=== PATIENT | male | born 1985 | race Caucasian/White ===

== ENCOUNTER 2017-05-11 06:30 | Inpatient (IN) ==
[2017-05-11] MEDS ORDERED: 0.9 % Sodium Chloride 1,000 ML IVC ONE ×2 (06:39→08:26)
--- NOTE | 2017-05-11 06:45 | Emergency Department Note ---
Disposition Clinical Impression: Dyspnea Qualifiers: Dyspnea type: unspecified Qualified Code(s): R06.00 - Dyspnea, unspecified Disposition: Still a Patient Condition: Undetermined Forms: ED Satisfaction Letter General Adult HPI - General Chief complaint: ED Shortness of Breath/Dyspnea Stated complaint: DARCIE Time Seen by Provider: 05/11/17 06:37 Source: EMS Mode of arrival: EMS Limitations: other (mental handicap) Nursing Notes Reviewed: Yes Vital Signs Reviewed: Yes - History of Present Illness HPI Narrative: 31 y/o male who reports that he had sudden onset of dyspnea starting at 5:45am. He had a knee surgery done 3 days ago at [facility]. He is unsure what type of surgery he had. He does not know his medical history. He denies having any current pain. EMS was called and he was found to by hypoxic and tachycardic. His family is reportedly on their way to the ER Pain Scale: 0 Consistency: constant Improves with: nothing Worsens with: nothing Associated symptoms: Reports: denies other symptoms Treatments Prior to Arrival: none - Related Data Previous Rx's Medication Instructions Recorded HYDROcodone/Acet 5/325 mg [[place] 1 tab PO Q4H PRN #20 tab 01/28/17 5-325 mg] Ondansetron ODT [Zofran ODT] 4 mg SL Q6HR #15 tab.rapdis 01/28/17 Polyethylene Glycol 3350 [MiraLAX] 17 gm PO DAILY #30 powd.pack 01/28/17 Ibuprofen [Motrin] 600 mg PO Q8HR PRN #20 tab 03/27/17 Ondansetron ODT [Zofran ODT] 4 mg SL Q8HR PRN #12 tab.rapdis 03/27/17 OxyCODONE/APAP 5/325 [Percocet 1 each PO Q6HR PRN #15 tablet 03/27/17 5/325 MG] Allergies Allergy/AdvReac Type Severity Reaction Status Date / Time aspirin AdvReac Vomiting Verified 03/27/17 15:22 codeine AdvReac Vomiting Verified 03/27/17 15:22 Sulfa (Sulfonamide AdvReac Vomiting Verified 03/27/17 15:22 Antibiotics) All systems ED: reviewed and negative except as stated. Constitutional: Denies: fever Cardiovascular: Denies: chest pain Respiratory: Reports: dyspnea. Denies: cough Gastrointestinal: Denies: abdominal pain Integumentary: Denies: rash Past Medical History - Past Medical History Medical history: Reports: diabetes, hypertension Surgical history: Reports: non-contributory Psychiatric history: Reports: anxiety, depression, schizophrenia - Social History Smoking Status: Never smoker Smokeless Tobacco Status: No Alcohol use: Reports: none Drug use: Reports: none Physical Exam - General Limitations: physical limitation General appearance: alert, other (visibly dyspneic) - Head Head exam: atraumatic - Eye Eye exam: Present: normal appearance, PERRL - ENT ENT exam: normal exam - Neck Neck exam: Present: normal inspection - Chest Chest inspection: Present: normal inspection - Respiratory Respiratory exam: Present: other (diminished breath sounds) - Cardiovascular Cardiovascular exam: Present: normal rhythm, tachycardia - Abdominal Exam Abdominal exam: Present: soft, Non-Tender - Extremities Exam Extremities exam: Present: other (right knee is in an immobilizer. Pulses present distally and cap refill is brisk distally.) - Neurological Exam Neurological exam: Present: alert - Skin Skin exam: Present: warm, dry Course Course Narrative: I initially saw the patient and will turn him over to the day team for following up on his labwork and CTA of the chest. High suspicion for pulmonary embolism. Not hypotensive and is maintaining his SPO2 >92% while on 2liter O2 NC. Medical Decision Making - Lab Data Result diagrams: 05/11/17 06:40 - EKG Data EKG #1 EKG attestation: Yes I reviewed and interpreted this EKG. EKG shows normal: sinus rhythm Rate: tachycardia Rhythm: NSR Interpretation: other (Sinus tachycardia.) Attestation Statement - Attestation Attestation: I, Aguustus Kelly MD, personally evaluated this patient and discussed their management with the resident physician. I reviewed the resident's note and agree with the documented findings, medical decision making, and plan of care. 31-year-old male who is 3 days status post right knee surgery presents to the emergency department complaining of awakening this morning shortly prior to arrival with shortness of breath. EMS reports oxygen saturation in the 80s on their arrival. No history of breathing problems or oxygen requirement. On arrival here patient is on oxygen by nasal cannula with an oxygen saturation of 93%. Heart rate 138. On examination patient is a well-developed obese male in mild distress. He is alert. He appears slightly pale. No cyanosis or diaphoresis. Breath sounds are clear and equal bilaterally. Heart tachycardic and regular. Lab work initiated. CTA of the chest was ordered to rule out pulmonary embolism. At shift change patient is signed out to the oncoming dayshift team 15, Dr. Maxwell and Dr. Ramu Dong.
[2017-05-11 06:48] LABS: Basophils % 0.3 %; Hematocrit 42.3 % (37.5-50.1); Hemoglobin 13.7 g/dL (12.9-16.9); Immature Granulocytes % 0.5 % (0-4); Lymphocytes % 7.5 %; Mean Corpuscular HGB Conc 32.4 g/dL (31.6-35.5); Mean Corpuscular Hemoglobin 28.1 pg (28.0-33.3); Mean Corpuscular Volume 86.9 fL (83.0-100.0); Mean Platelet Volume 9.4 fL (9.4-12.4); Monocytes # 0.3 K/mcL (0.0-1.3); Monocytes % 2.6 %; Neutrophils # 11.9 K/mcL (1.6-8.9); Platelet Count 237 K/mcL (140-400); Red Blood Count 4.87 M/mcL (4.19-5.50); Red Cell Distribution Width 12.8 % (11.5-14.5); Segmented Neutrophils % 89.1 %
[2017-05-11 07:09] LABS: BUN/Creatinine Ratio 15 (6-26); Blood Urea Nitrogen 15 mg/dL (6-20); Carbon Dioxide 29 mEq/L (23-29); Chloride 102 mEq/L (98-107); Glucose 160 mg/dL (70-105); Osmolality,Calculated 290 (280-300); Potassium 4.1 mEq/L (3.5-5.1); Sodium 138 mEq/L (136-145); eGFR For African Americans > 60 (> 60); eGFR For Non-African Americans > 60 (> 60)
[2017-05-11 07:11] LABS: INR 1.1
[2017-05-11 07:27] LABS: Activated Partial Thrombo Time 28.1 Seconds (26.0-36.0)
[2017-05-11] MEDS ORDERED: Piperacillin/Tazobactam 3.375 GM in 0.9 % Sodium Chloride Mini Bag 100 ML IVPB ONE (07:31)
--- NOTE | 2017-05-11 07:35 | Emergency Department Note ---
Disposition Clinical Impression: Multifocal pneumonia, Hypoxia Dyspnea Qualifiers: Dyspnea type: unspecified Qualified Code(s): R06.00 - Dyspnea, unspecified Disposition: Admitted As Inpatient Condition: Fair Time of Disposition: 07:34 SOB HPI - General Chief Complaint: ED Shortness of Breath/Dyspnea Stated Complaint: DARCIE Time Seen by Provider: 05/11/17 06:37 Source: EMS Mode of arrival: EMS Limitations: physical limitation Nursing Notes Reviewed: Yes Vital Signs Reviewed: Yes - Related Data Allergies Allergy/AdvReac Type Severity Reaction Status Date / Time aspirin AdvReac Vomiting Verified 03/27/17 15:22 codeine AdvReac Vomiting Verified 03/27/17 15:22 Sulfa (Sulfonamide AdvReac Vomiting Verified 03/27/17 15:22 Antibiotics) Constitutional: Denies: fever Cardiovascular: Denies: chest pain Respiratory: Reports: dyspnea. Denies: cough Gastrointestinal: Denies: abdominal pain Integumentary: Denies: rash Past Medical History - Past Medical History Medical history: Reports: diabetes, hypertension Surgical history: Reports: non-contributory Psychiatric history: Reports: anxiety, depression, schizophrenia - Social History Smoking Status: Never smoker Smokeless Tobacco Status: No Alcohol use: Reports: none Drug use: Reports: none Physical Exam - General Limitations: physical limitation General appearance: alert, other (visibly dyspneic) Course Course Narrative: Care was signed out from Dr. Kelly and Dr. Goldsmith, briefly patient with Levon E status post right knee surgery a few days ago, presents with hypoxia shortness of breath, CTA of his chest shows evidence of no pulmonary embolism bilateral multifocal pneumonia, she does endorse a history of aspiration, started empirically on bank and Zosyn, plan is for admission to hospital - Reevaluation(s) Reevaluation #1: Patient admitted to Dr. Maldonado for multifocal pneumonia, possible aspiration pneumonia, hypoxia, sepsis. Blood cultures lactate drawn, no evidence of severe sepsis with blood pressure 144/90, patient given fluids antibiotics with vancomycin and Zosyn for concern for aspiration risk. Vital Signs Temperature 99.7 F H 05/11/17 06:34 Pulse Rate 139 05/11/17 06:34 Respiratory Rate 26 05/11/17 06:34 Blood Pressure 144/91 05/11/17 06:34 O2 Sat by Pulse Oximetry 92 05/11/17 06:34 Temperature 99.4 F 05/11/17 08:18 Pulse Rate 132 05/11/17 08:18 Respiratory Rate 18 05/11/17 08:18 Blood Pressure 142/93 05/11/17 08:18 O2 Sat by Pulse Oximetry 92 05/11/17 08:18 Oxygen Delivery Oxygen Delivery Nasal Cannula Shortness of Breath/Dyspnea - Differential Diagnosis Likely: congestive heart failure, pneumonia, asthma with exacerbation, pulmonary embolism - Medical Records Medical records reviewed: Yes I reviewed the patient's medical records. - Lab Data Lab results reviewed: Yes I reviewed the patient's lab results. Result diagrams: 05/11/17 06:40 05/11/17 06:40 Lab Results 05/11/17 05/11/17 05/11/17 Range/Units 06:40 06:40 06:40 WBC 13.3 H (4.3-11.1) K/mcL RBC 4.87 (4.19-5.50) M/mcL Hgb 13.7 (12.9-16.9) g/dL Hct 42.3 (37.5-50.1) % MCV 86.9 (83.0-100.0) fL MCH 28.1 (28.0-33.3) pg MCHC 32.4 (31.6-35.5) g/dL RDW 12.8 (11.5-14.5) % Plt Count 237 (140-400) K/mcL MPV 9.4 (9.4-12.4) fL Immature Gran % 0.5 (0-4) % Seg Neutrophils % 89.1 % Lymphocytes % 7.5 % Monocytes % 2.6 % Eosinophils % 0.0 % Basophils % 0.3 % Neutrophils # 11.9 H (1.6-8.9) K/mcL Lymphocytes # 1.0 (0.6-4.6) K/mcL Monocytes # 0.3 (0.0-1.3) K/mcL Eosinophils # 0.0 (0.0-0.6) K/mcL Basophils # 0.0 (0.0-0.2) K/mcL PT (9.4-12.1) Seconds INR APTT (26.0-36.0) Seconds Sodium 138 (136-145) mEq/L Potassium 4.1 (3.5-5.1) mEq/L Chloride 102 (98-107) mEq/L Carbon Dioxide 29 (23-29) mEq/L BUN 15 (6-20) mg/dL Creatinine 1.02 (0.70-1.30) mg/dL Est GFR ( Amer) > 60 (> 60) Est GFR (Non-Af Amer) > 60 (> 60) BUN/Creatinine Ratio 15 (6-26) Glucose 160 H (70-105) mg/dL Calculated Osmolality 290 (280-300) Lactic Acid 1.3 (0.5-2.2) mmol/L Calcium 10.0 (8.6-10.3) mg/dL Troponin I (< 0.04) ng/mL B-Natriuretic Peptide (Less than 100) pg/mL 05/11/17 05/11/17 05/11/17 Range/Units 06:40 06:40 06:40 WBC (4.3-11.1) K/mcL RBC (4.19-5.50) M/mcL Hgb (12.9-16.9) g/dL Hct (37.5-50.1) % MCV (83.0-100.0) fL MCH (28.0-33.3) pg MCHC (31.6-35.5) g/dL RDW (11.5-14.5) % Plt Count (140-400) K/mcL MPV (9.4-12.4) fL Immature Gran % (0-4) % Seg Neutrophils % % Lymphocytes % % Monocytes % % Eosinophils % % Basophils % % Neutrophils # (1.6-8.9) K/mcL Lymphocytes # (0.6-4.6) K/mcL Monocytes # (0.0-1.3) K/mcL Eosinophils # (0.0-0.6) K/mcL Basophils # (0.0-0.2) K/mcL PT 12.0 (9.4-12.1) Seconds INR 1.1 APTT 28.1 (26.0-36.0) Seconds Sodium (136-145) mEq/L Potassium (3.5-5.1) mEq/L Chloride (98-107) mEq/L Carbon Dioxide (23-29) mEq/L BUN (6-20) mg/dL Creatinine (0.70-1.30) mg/dL Est GFR ( Amer) (> 60) Est GFR (Non-Af Amer) (> 60) BUN/Creatinine Ratio (6-26) Glucose (70-105) mg/dL Calculated Osmolality (280-300) Lactic Acid (0.5-2.2) mmol/L Calcium (8.6-10.3) mg/dL Troponin I < 0.03 (< 0.04) ng/mL B-Natriuretic Peptide 14 (Less than 100) pg/mL - Radiology Data Radiology results reviewed: Yes I reviewed the patient's radiology results. Chest CTA 05/11/17 06:39 IMPRESSION: Findings are most compatible with multifocal pneumonia. No pulmonary embolus within limitations of this exam due to respiratory motion. D/ / 05/11/2017 07:38:59 Nathalia Gregorio MD / malu Interpreting Provider: Nathalia Gregorio MD Attestation Statement - Attestation Attestation: I, Ramu Dong, examined this patient and my medical decision-making was reviewed with the TIMBER SIZER OPERATOR/PA/Advanced Practice Nurse/Resident Physician. I agree with the documented findings, disposition and treatment plan as described except to the extent set forth below. 31-year-old male presents emergency Department with difficulty in breathing. Patient had recent right lower extremity surgery by Dr. Bates at [facility]. This morning he woke with tachypnea, tachycardia and was found to be hypoxic by EMS. Patient has a history of developmental delay and is a difficult historian. Patient was received in sign out and started her shift pending laboratory evaluation and imaging. CT of the chest did not show evidence of PE however there is evidence of multifocal pneumonia. Patient has mildly elevated temperature and a leukocytosis. He will be started on antibiotics to cover for aspiration pneumonia. He will be admitted to the hospital for further care and evaluation.
[2017-05-11] MEDS ORDERED: Ibuprofen 800 MG TABLET PO ONE ×2 (08:26→20:29)
[2017-05-11] MEDS ORDERED: Acetaminophen 325 MG TABLET PO PRN (09:06)
[2017-05-11] MEDS ORDERED: Naloxone 0.4 MG/ML INJ IVP PRN (09:06)
--- NOTE | 2017-05-11 09:16 | Internal Med History&Physical ---
<HumphreyusDenis - Last Filed: 05/11/17 11:15> Date of Encounter: 05/11/17 Time of Encounter: 09:15 Assessment and Plan (1) Sepsis Current visit: Yes Status: Acute Patient arrived with symptoms of shortness of breath HR was 130s, temp: 101.2, WBC 13.3 source of infection likely secondary to HCAP patient recently had surgery 3 days ago on his right knee at [facility] chest CTA showed multifocal pneumonia without evidence of PE received 2L fluid bolus, one dose of vancomycin and zosyn in ED lactic acid: 1.3 Plan: UA maintenance fluids blood cultures x2 sputum culture supplemental oxygen vancomycin, zosyn, levaquin day 1 PRN DuoNebs continuous pulse ox consult ortho later if needed Qualifiers: Sepsis type: sepsis due to unspecified organism Qualified Code(s): A41.9 - Sepsis, unspecified organism (2) HCAP (healthcare-associated pneumonia) Current visit: Yes Status: Acute as above (3) Chest pain Current visit: Yes Status: Acute reports substernal chest pain EKG consistent with sinus tachycardia without ischemic changes noted. first troponin negative Plan: repeat troponin x2 Qualifiers: Ischemic chest pain type: angina pectoris with documented coronary spasm (4) DVT prophylaxis Current visit: Yes Status: Acute lovenox Internal Medicine - H&P: HPI Chief complaint: dyspnea Admitted From: Home History of present illness: Mr. Landon is a 31 year old male with PMHx of intellectual disorder, HTN, recent knee surgery 3 days ago at [facility] by Dr. Bates. Patient is a poor historian and history was obtained in the emergency department without his family present. Patient arrived to the emergency department with chief complaint of sudden onset dyspnea that started earlier in the morning. He also reports productive white sputum with associated fevers and chills. Additionally , he reports substernal chest pain that radiates to his back, and reports soreness in his right lower extremity where his prior surgery was done. patient denies hematuria, melena, hematochezia. He does report palpitations. In the ED, patient was found to be septic and was given a dose of vancomycin, zosyn, and he was given 2L fluid bolus. Past Med Surg Social Fam HX - Past Medical History Medical history: diabetes, hypertension Psychiatric history: anxiety, depression, schizophrenia - Past Surgical History Surgical History: non-contributory - Social History Smoking Status: Never smoker Smokeless Tobacco Status: No Alcohol use: none Drug use: none Internal Medicine - H&P: Meds Citalopram Hydrobromide [Celexa] 20 mg PO DAILY 05/11/17 [History] HydrOXYzine Pamoate [Vistaril] 50 mg PO TID 05/11/17 [History] LORazepam [Ativan] 1 mg PO QID 05/11/17 [History] [place] Carbonate ER [Eskalith] 450 mg PO HS 05/11/17 [History] Melatonin [Melatin] 6 mg PO HS 05/11/17 [History] Propranolol HCl [Innopran Xl] 120 mg PO HS 05/11/17 [History] cloZAPine [Clozaril] 75 mg PO HS 05/11/17 [History] cloZAPine [Clozaril] 300 mg PO HS 05/11/17 [History] 3 Allergy/AdvReac Type Severity Reaction Status Date / Time aspirin AdvReac Vomiting Verified 03/27/17 15:22 codeine AdvReac Vomiting Verified 03/27/17 15:22 Sulfa (Sulfonamide AdvReac Vomiting Verified 03/27/17 15:22 Antibiotics) All Systems PM: A 10-system review of systems was performed and is negative for pertinent findings except as documented above in the HPI. - Constitutional Constitutional: as per HPI - Constitutional Vitals: Temp Pulse Resp BP Pulse Ox 101.2 F H 132 18 142/93 92 05/11/17 08:26 05/11/17 08:18 05/11/17 08:18 05/11/17 08:18 05/11/17 08:18 General appearance: Present: A&O X 3, no acute distress. Absent: answers questions appropriately Exam: no acute distress, appears pale and diaphoretic - Head Head exam: Present: atraumatic, normocephalic - Neck Neck exam general surgery: Present: supple, trachea midline - Respiratory Respiratory exam: Present: rales, rhonchi - Cardiovascular Cardiovascular exam: Present: tachycardia - GI/Abdominal GI/Abdominal exam: Present: distended, normal bowel sounds, soft. Absent: tenderness - Extremities Exam Additional comments: right lower extremity placed in cast. no cyanosis or edema present in the extremities. - Neurological Exam Neurological exam: Present: alert, oriented X3, no focal deficits - Psychiatric Psychiatric exam: Present: normal affect, normal mood - Skin Skin exam: Present: intact Internal Med - H&P Results - Labs CBC & Chem 7: 05/11/17 06:40 05/11/17 06:40 <Goyo Maldonado - Last Filed: 05/11/17 18:54> Date of Encounter: 05/11/17 Internal Medicine - H&P: HPI History of present illness: Mr. Landon is a 31 year old male All Systems PM: A 10-system review of systems was performed and is negative for pertinent findings except as documented above in the HPI. - Constitutional Vitals: Temp Pulse Resp BP Pulse Ox 99.7 F H 105 16 115/79 95 05/11/17 16:04 05/11/17 16:04 05/11/17 16:04 05/11/17 16:04 05/11/17 16:04 Internal Med - H&P Results - Labs CBC & Chem 7: 05/11/17 06:40 05/11/17 06:40 Labs: Cardiac Enzymes 05/11/17 Range/Units 12:53 Troponin I < 0.03 (< 0.04) ng/mL Urine 05/11/17 Range/Units 12:40 Urine Color Yellow (Yellow) Urine Clarity Clear (Clear) Urine pH 6.0 (5.0-8.0) pH Units Ur Specific [place] 1.016 (1.010-1.025) Urine Protein Negative (Neg-Trace) mg/dL Urine Glucose (UA) Normal (Normal) mg/dL - Attending Attestation I had a [id number] diagnostic evaluation of this patient and my medical decision-making was reviewed with the Resident Physician Dr Lares. I agree with the documented findings, disposition and treatment plan as described except to the extent set forth below. For sepsis secondary to pneumonia we will treat him with broad-spectrum IV antibiotics, follow cultures and temperature curve. For hypertension will continue oral antihypertensive medication per home regimen. For diabetes will treat him with insulin sliding scale. Goyo Maldonado MD
[2017-05-11] MEDS ORDERED: Ipratropium/Albuterol Neb 3 ML IH PRN (09:33)
[2017-05-11] MEDS: 0.9 % Sodium Chloride 1,000 ML IVC SCH (10:41)
[2017-05-11] MEDS: Levofloxacin 750 MG/150 ML 750 MG/150 ML BAG IVPB SCH (10:41)
[2017-05-11 13:07] LABS: Bilirubin,Urine Negative (Negative); Blood,Urine Negative (Negative); Clarity,Urine Clear (Clear); Color,Urine Yellow (Yellow); Glucose,Urine (UA) Normal (Normal); Ketones,Urine Negative (Negative); Leukocyte Esterase,Urine Negative (Negative); Nitrite,Urine Negative (Negative); Protein,Urine Negative (Neg-Trace); Specific Gravity,Urine 1.016 (1.010-1.025); Urobilinogen,Urine Normal (Normal)
[2017-05-11] MEDS: Ondansetron 4 MG/2 ML VIAL IVP SCH ×2 (16:18→23:16)
[2017-05-11] MEDS ORDERED: hydrOXYzine pamoate 25 MG CAPSULE PO PRN (19:38)
[2017-05-11] MEDS ORDERED: *HR* LORazepam 1 MG TABLET PO PRN (19:38)
[2017-05-11] MEDS: Lithium Carbonate ER 450 MG TABLET.ER PO SCH (20:32)
[2017-05-11] MEDS: cloZAPine 25 MG TABLET PO SCH (20:32)
[2017-05-11] MEDS: Propranolol LA (24 HR) 60 MG CAP.SA.24H PO SCH (20:32)
[2017-05-11] MEDS: Melatonin 3 MG TABLET PO SCH (20:32)
[2017-05-11] MEDS: cloZAPine 100 MG TABLET PO SCH (21:58)
[2017-05-12] MEDS: 0.9 % Sodium Chloride 1,000 ML IVC SCH (02:52)
[2017-05-12 04:40] LABS: Basophils % 0.2 %; Hematocrit 32.4 % (37.5-50.1); Immature Granulocytes % 0.6 % (0-4); Lymphocytes # 1.9 K/mcL (0.6-4.6); Lymphocytes % 21.2 %; Mean Corpuscular HGB Conc 32.7 g/dL (31.6-35.5); Mean Corpuscular Hemoglobin 28.3 pg (28.0-33.3); Mean Corpuscular Volume 86.6 fL (83.0-100.0); Mean Platelet Volume 9.5 fL (9.4-12.4); Monocytes # 0.7 K/mcL (0.0-1.3); Monocytes % 7.3 %; Neutrophils # 6.3 K/mcL (1.6-8.9); Platelet Count 223 K/mcL (140-400); Red Blood Count 3.74 M/mcL (4.19-5.50); Segmented Neutrophils % 70.7 %
[2017-05-12 04:42] LABS: Hemoglobin 10.6 g/dL (12.9-16.9)
[2017-05-12 05:02] LABS: BUN/Creatinine Ratio 13 (6-26); Blood Urea Nitrogen 11 mg/dL (6-20); Carbon Dioxide 29 mEq/L (23-29); Chloride 108 mEq/L (98-107); Glucose 118 mg/dL (70-105); Osmolality,Calculated 290 (280-300); Sodium 140 mEq/L (136-145); eGFR For African Americans > 60 (> 60); eGFR For Non-African Americans > 60 (> 60)
[2017-05-12] MEDS: Ondansetron 4 MG/2 ML VIAL IVP SCH ×3 (05:56→18:02)
[2017-05-12] MEDS: *HR* Enoxaparin 40 MG/0.4 ML SYRINGE SQ SCH (05:56)
[2017-05-12] MEDS: Lithium Carbonate ER 450 MG TABLET.ER PO SCH ×2 (09:15→19:37)
[2017-05-12] MEDS: Levofloxacin 750 MG/150 ML 750 MG/150 ML BAG IVPB SCH (09:16)
[2017-05-12] MEDS ORDERED: MOM Conc 10 ML UD.LIQ PO ONE (11:38)
--- NOTE | 2017-05-12 15:21 | Internal Med Progress Note ---
<Epifanio Kerns - Last Filed: 05/12/17 15:12> Date of Encounter: 05/12/17 Time of Encounter: 10:40 - Assessment and plan (1) Sepsis Current Visit: Yes Status: Acute Assessment and plan: Sepsis most likely secondary to HCAP. On admission, patient was tachycardic at 130s, febrile at 101.2, elevated white blood count at 13.3, and source of infection is likely multifocal pneumonia. Patient is post op 4 days s/p right knee surgery at [facility]. Chest CTA showed multifocal pneumonia without any evidence of pulmonary embolism. Lactic acid on admission is 1.3. Preliminary report reads blood cultures negative 2. UA is negative for infections. Sputum culture is still pending. Troponins negative. 1. Continue maintenance fluids. 2. Continue supplemental oxygen as needed. 3. We will discontinue vancomycin after today's dose. 4. Continue day 2 of Levaquin and Zosyn. 5. Consider consult to orthopedic later if needed. Qualifiers: Sepsis type: sepsis due to unspecified organism Qualified Code(s): A41.9 - Sepsis, unspecified organism (2) Multifocal pneumonia Current Visit: Yes Status: Acute Assessment and plan: CTA of the chest shows multifocal pneumonia. No evidence of pulmonary embolism. 1. Tinea IV antibiotics. 2. DuoNeb prn. 3. Continuous pulse oximetry. 4. Supplement oxygen as needed. (3) Chest pain Current Visit: Yes Status: Acute Assessment and plan: Patient denies any chest pain at this time. Initial troponins is negative. Qualifiers: Ischemic chest pain type: angina pectoris with documented coronary spasm Qualified Code(s): I20.1 - Angina pectoris with documented spasm (4) DVT prophylaxis Current Visit: Yes Status: Acute Assessment and plan: SQ Lovenox at this time. (5) Abdominal pain, acute, left lower quadrant Current Visit: Yes Status: Acute Assessment and plan: Patient is afebrile and appears in no acute distress. Left lower quadrant abdominal pain most likely secondary to constipation. Patient's last bowel movement was approximately 4 days ago. Left lower quadrant abdominal tenderness to palpation. Will give patient milk of magnesia - Time Spent With Patient Greater than 35 minutes - Subjective Interval history: The patient was seen and evaluated at bedside. Patient is alert, awake, interactive, afebrile, and appears in no acute distress. Patient is status post 4 days right knee surgery at [facility]. The patient is very pleasant and states that he feels "really good and ready to go home". He was speaking with his mother on his cellular device and placed her on speaker during my exam. Patient states he stays at a intermediate where his mother works at. Patient stated he had a right knee surgery completed this past Thursday due to a broken knee from "a very bad fall that bended my whole right leg backward." Today the patient denies any shortness of breath, productive coughing, fevers, chills , or any chest pain. Patient admits left lower quadrant abdominal pain. He admits he has not had a bowel movement for the past 4 days. Patient denies any pain in his lower extremities and any numbness or tingling. He denies any weaknesses. The patient has no other concerns at this time. - Constitutional Vitals: Temp Pulse Resp BP Pulse Ox 97.9 F 71 16 119/63 96 05/12/17 11:37 05/12/17 11:37 05/12/17 11:37 05/12/17 11:37 05/12/17 11:37 General appearance: Present: cooperative, A&O X 3, pleasant, no acute distress. Absent: answers questions appropriately - Head Head exam: Present: atraumatic, normocephalic - Eye Eye exam: Present: EOMI, normal appearance, PERRL, conjuntiva pink, sclera anicteric - ENT ENT exam: Present: mucous membranes moist - Neck Neck exam general surgery: Present: supple, trachea midline. Absent: lymphadenopathy, tenderness - Respiratory Respiratory exam: Present: CTAB. Absent: accessory muscle use, rales, respiratory distress, rhonchi, wheezes - Cardiovascular Cardiovascular exam: Present: RRR, +S1, +S2. Absent: diastolic murmur, gallop, rubs, systolic murmur - GI/Abdominal GI/Abdominal exam: Present: normal bowel sounds, soft, tenderness (Tenderness to palpation in the left lower quadrant.), no peritoneal signs. Absent: distended - Extremities Exam Extremities exam: Present: warm, radial pulses palpable and symmetrical. Absent : calf tenderness, cyanotic, pedal edema Additional comments: Right lower extremity is placed in a cast. No cyanosis or edema present in the lower extremities bilaterally. Distal pulses intact +2/4 bilaterally. - Neurological Exam Neurological exam: Present: alert, CN II-XII intact, oriented X3, no focal deficits. Absent: pronater drift, facial droop, speech deficit - Skin Skin exam: Present: dry, intact Internal Medicine: Result - Labs CBC & Chem 7: 05/12/17 04:14 05/12/17 04:14 Labs: Short CBC 05/12/17 Range/Units 04:14 WBC 8.9 (4.3-11.1) K/mcL Hgb 10.6 L D (12.9-16.9) g/dL Hct 32.4 L (37.5-50.1) % Plt Count 223 (140-400) K/mcL Neutrophils # 6.3 (1.6-8.9) K/mcL BMP 05/12/17 04:14 Sodium 140 Potassium 4.0 Chloride 108 H Carbon Dioxide 29 BUN 11 Creatinine 0.85 Glucose 118 H Calcium 9.0 - ABG Interpretation ABG results: PT/INR, D-dimer PT 12.0 Seconds (9.4-12.1) 05/11/17 06:40 Consult Discharge Plan - Plan Referrals: NONE,PCP [Primary Care Provider] - <Markell Ahuja - Last Filed: 05/12/17 18:21> Date of Encounter: 05/12/17 - Assessment and plan (1) Pneumonia Current Visit: Yes Status: Suspected Assessment and plan: Pt recent surgery. Qualifiers: Pneumonia type: due to other aerobic Gram-negative bacteria Laterality: bilateral Lung location: lower lobe of lung Qualified Code(s): J15.6 - Pneumonia due to other Gram-negative bacteria (2) Sepsis Current Visit: Yes Status: Resolved Qualifiers: Sepsis type: sepsis due to unspecified organism Qualified Code(s): A41.9 - Sepsis, unspecified organism (3) Chest pain Current Visit: Yes Status: Acute Qualifiers: Chest pain type: precordial pain Qualified Code(s): R07.2 - Precordial pain (4) Abdominal pain, acute, left lower quadrant Current Visit: Yes Status: Acute (5) Constipation Current Visit: Yes Status: Acute Qualifiers: Constipation type: slow transit constipation Qualified Code(s): K59.01 - Slow transit constipation - Constitutional Vitals: Temp Pulse Resp BP Pulse Ox 97.6 F 85 17 115/78 95 05/12/17 15:47 05/12/17 15:47 05/12/17 15:47 05/12/17 15:47 05/12/17 15:47 Internal Medicine: Result - Labs CBC & Chem 7: 05/12/17 04:14 05/12/17 04:14 Labs: Short CBC 05/12/17 Range/Units 04:14 WBC 8.9 (4.3-11.1) K/mcL Hgb 10.6 L D (12.9-16.9) g/dL Hct 32.4 L (37.5-50.1) % Plt Count 223 (140-400) K/mcL Neutrophils # 6.3 (1.6-8.9) K/mcL BMP 05/12/17 04:14 Sodium 140 Potassium 4.0 Chloride 108 H Carbon Dioxide 29 BUN 11 Creatinine 0.85 Glucose 118 H Calcium 9.0 - ABG Interpretation ABG results: PT/INR, D-dimer PT 12.0 Seconds (9.4-12.1) 05/11/17 06:40 - Attending Attestation I examined this patient and my medical decision-making was reviewed with the Resident Physician on 05/12/17. I agree with the documented findings, disposition and treatment plan as described except to the extent set forth below. Mr Landon is currently admitted for multifocal pneumonia. He remains moderate to high risk due to potential for worsening clinical status. Mr Landon is starting to feel better today. No fever last night. Less dyspnea and cough. No GI issues. Exam Alert. Comfortable Mucus membranes dry Heart reg No wheeze. Lungs clear Abd soft I/P 1. Pneumonia - bilateral 2. Sepsis resolved Further diagnoses and plan as above.
[2017-05-12] MEDS: Melatonin 3 MG TABLET PO SCH (19:37)
[2017-05-12] MEDS: Propranolol LA (24 HR) 60 MG CAP.SA.24H PO SCH (19:37)
[2017-05-12] MEDS: cloZAPine 25 MG TABLET PO SCH (19:37)
[2017-05-12] MEDS: cloZAPine 100 MG TABLET PO SCH (19:38)
[2017-05-12] MEDS ORDERED: Ibuprofen 600 MG TABLET PO PRN (20:14)
[2017-05-13] MEDS: Ondansetron 4 MG/2 ML VIAL IVP SCH ×3 (00:33→11:32)
[2017-05-13 02:14] LABS: Basophils % 0.2 %; Hematocrit 32.3 % (37.5-50.1); Hemoglobin 10.6 g/dL (12.9-16.9); Immature Granulocytes % 0.6 % (0-4); Lymphocytes # 1.9 K/mcL (0.6-4.6); Mean Corpuscular HGB Conc 32.8 g/dL (31.6-35.5); Mean Corpuscular Hemoglobin 28.2 pg (28.0-33.3); Mean Corpuscular Volume 85.9 fL (83.0-100.0); Monocytes # 0.7 K/mcL (0.0-1.3); Monocytes % 7.8 %; Platelet Count 241 K/mcL (140-400); Red Blood Count 3.76 M/mcL (4.19-5.50); Segmented Neutrophils % 69.4 %
[2017-05-13 02:33] LABS: BUN/Creatinine Ratio 11 (6-26); Blood Urea Nitrogen 10 mg/dL (6-20); Calcium 9.3 mg/dL (8.6-10.3); Carbon Dioxide 30 mEq/L (23-29); Chloride 107 mEq/L (98-107); Glucose 114 mg/dL (70-105); Osmolality,Calculated 294 (280-300); Potassium 3.7 mEq/L (3.5-5.1); Sodium 142 mEq/L (136-145); eGFR For African Americans > 60 (> 60); eGFR For Non-African Americans > 60 (> 60)
[2017-05-13] MEDS: *HR* Enoxaparin 40 MG/0.4 ML SYRINGE SQ SCH (06:12)
[2017-05-13] MEDS: Lithium Carbonate ER 450 MG TABLET.ER PO SCH (08:41)
--- NOTE | 2017-05-13 09:27 | Discharge Summary ---
<Epifanio Kerns - Last Filed: 05/13/17 09:51> Date of Encounter: 05/13/17 Time of Encounter: 08:45 - Discharge Diagnosis (1) Sepsis Priority: Primary Status: Resolved Qualifiers: Sepsis type: sepsis due to unspecified organism Qualified Code(s): A41.9 - Sepsis, unspecified organism (2) Multifocal pneumonia Priority: Primary Status: Acute (3) Chest pain Priority: Secondary Status: Acute Comments: Resolved. Qualifiers: Chest pain type: precordial pain Qualified Code(s): R07.2 - Precordial pain (4) DVT prophylaxis Priority: Secondary Status: Acute (5) Abdominal pain, acute, left lower quadrant Priority: Secondary Status: Acute Comments: Look quadrant abdominal pain was likely secondary to constipation. Resolved the patient had multiple bowel movements. Hospital course: Mr. Landon is a 31 year old male with a past medical history of hypertension and intellectual disability admitted on 05/11/17 for sepsis secondary to multifocal pneumonia. Patient is post-op day 5 s/p right knee surgery. Patient reported to the emergency department complaining of sudden onset of shortness of breath, productive cough, fever, chills, and chest pain that radiated to the back. Patient was febrile and tachycardic. Labs showed elevated white blood count at 13.3. Troponin is negative. Lactic acid is 1.3. CTA of the chest was negative for PE but positive for multifocal pneumonia. UA was negative for infection. Blood cultures are negative x2. EKG showed no acute ischemic changes. Patient received fluid and one dose of vancomycin and Zosyn in the emergency department. Patient is clinically improving and denies any shortness of breath, chest pain, difficulty breath, fevers,chills, and any weaknesses. Patient is afebrile and white blood count is trending down. Patient is recommended to follow up with his PCP within one week. Patient will be discharged with antibiotics. Patient gave verbal understanding. Patient has no other concerns at this time. - Time Spent with Patient Total time spent providing and/or coordinating discharge services: Greater than 30 minutes - Discharge Medications Prescriptions: levoFLOXacin [Levaquin] 750 mg PO DAILY 4 Days #4 tablet Home Medications: Citalopram Hydrobromide [Celexa] 20 mg PO DAILY 05/11/17 [History] HydrOXYzine Pamoate [Vistaril] 50 mg PO TID PRN 05/11/17 [History] LORazepam [Ativan] 1 mg PO QID PRN 05/11/17 [History] [place] Carbonate ER [Eskalith] 450 mg PO BID 05/11/17 [History] Melatonin [Melatin] 6 mg PO HS 05/11/17 [History] Propranolol HCl [Innopran Xl] 120 mg PO HS 05/11/17 [History] cloZAPine [Clozaril] 75 mg PO HS 05/11/17 [History] cloZAPine [Clozaril] 300 mg PO HS 05/11/17 [History] levoFLOXacin [Levaquin] 750 mg PO DAILY 4 Days #4 tablet 05/13/17 [Rx] Allergies/Adverse Reactions: 3 Allergy/AdvReac Type Severity Reaction Status Date / Time aspirin AdvReac Vomiting Verified 03/27/17 15:22 codeine AdvReac Vomiting Verified 03/27/17 15:22 Sulfa (Sulfonamide AdvReac Vomiting Verified 03/27/17 15:22 Antibiotics) Date of admission: 05/11/17 18:55 Primary care physician: PCP NONE Consults: 05/11/17 21:09 Consult to Nutrition [CONS] Routine Comment: Consulting Provider: NUTRITION Reason for Dietary Consult: MST Score Discharging clinician: Epifanio Krens Anticipated date of discharge: 05/13/17 - Constitutional Vitals: Temp Pulse Resp BP Pulse Ox 97.7 F 77 17 112/73 93 05/13/17 07:42 05/13/17 07:42 05/13/17 07:42 05/13/17 07:42 05/13/17 07:42 General appearance: Present: cooperative, A&O X 3, pleasant, no acute distress. Absent: answers questions appropriately - Head Head exam: Present: atraumatic - Eye Eye exam: Present: normal appearance, PERRL, conjuntiva pink, sclera anicteric - ENT ENT exam: Present: mucous membranes moist - Neck Neck exam general surgery: Present: supple, trachea midline. Absent: lymphadenopathy, tenderness - Respiratory Respiratory exam: Present: CTAB. Absent: accessory muscle use, rales, respiratory distress, rhonchi, wheezes - Cardiovascular Cardiovascular exam: Present: RRR, +S1, +S2. Absent: diastolic murmur, gallop, rubs, systolic murmur - GI/Abdominal GI/Abdominal exam: Present: normal bowel sounds, soft, no peritoneal signs. Absent: distended, firm, guarding, tenderness - Extremities Exam Extremities exam: Present: warm, radial pulses palpable and symmetrical. Absent : calf tenderness, cyanotic, pedal edema Additional comments: Right lower extremity is placed in a cast. No cyanosis or edema present in the lower extremities bilaterally. Distal pulses intact +2/4 bilaterally. - Neurological Exam Neurological exam: Present: CN II-XII intact, oriented X3, no focal deficits. Absent: pronater drift, facial droop, speech deficit - Skin Skin exam: Present: dry, intact - Patient Status Disposition: Home, Self-Care Condition: Good Functional capacity at discharge: wheelchair bound Overall status at discharge: patient is progressing back to baseline - Discharge Instructions Instructions: Levofloxacin (By mouth), Pneumonia (DC) Follow Up With: NONE,PCP [Primary Care Provider] - [facility] [Outside] Rufus Bates DO [Non-Partnered Physician] - Additional Instructions: 1. Please follow up with your primary care physician within one week. If you do not have one, we have a referral to the [facility]. 2. Please continue all of your home medications as prescribed. 3. Please take the new prescribed medications as prescribed. Take Levaquin 750mg by mouth once daily for the next four days. 4. Please follow up with Dr. Sweeney as he recommended or within 2-3 weeks, whichever is sooner. 5. Please return to the hospital for new or worsening symptoms. - Diet and Activity Activity: increase activity as tolerated Diet: advance to your usual diet <Markell Ahuja - Last Filed: 05/13/17 14:50> Date of Encounter: 05/13/17 - Discharge Diagnosis (1) Pneumonia Priority: Primary Status: Suspected Qualifiers: Pneumonia type: due to other aerobic Gram-negative bacteria Laterality: bilateral Lung location: lower lobe of lung Qualified Code(s): J15.6 - Pneumonia due to other Gram-negative bacteria (2) Sepsis Status: Resolved Qualifiers: Sepsis type: sepsis due to unspecified organism Qualified Code(s): A41.9 - Sepsis, unspecified organism (3) Chest pain Status: Resolved Qualifiers: Chest pain type: precordial pain Qualified Code(s): R07.2 - Precordial pain (4) Abdominal pain, acute, left lower quadrant Status: Resolved (5) Constipation Priority: Secondary Status: Acute Qualifiers: Constipation type: slow transit constipation Qualified Code(s): K59.01 - Slow transit constipation Hospital course: Mr. Landon is a 31 year old male - Time Spent with Patient Total time spent providing and/or coordinating discharge services: 41min Date of admission: 05/11/17 18:55 Primary care physician: PCP NONE Consults: 05/11/17 21:09 Consult to Nutrition [CONS] Routine Comment: Consulting Provider: NUTRITION Reason for Dietary Consult: MST Score - Constitutional Vitals: Temp Pulse Resp BP Pulse Ox 97.3 F L 82 16 122/82 95 05/13/17 11:33 05/13/17 11:33 05/13/17 11:33 05/13/17 11:33 05/13/17 11:33 - Attending Attestation I examined this patient and my medical decision-making was reviewed with the Resident Physician on 05/13/17. I agree with the documented findings, disposition and treatment plan as described except to the extent set forth below. Mr Landon has been admitted for pneumonia that has developed after a recent surgery. He has improved with current treatment and is now afebrile. His respiratory status has much improved. At this time he is ready for discharge. Exam Alert. Comfortable Mucus membranes moist Heart reg Lungs clear today Plan D/C home (skilled nursing) today Follow up with PCP.
[2017-05-13] MEDS ORDERED: levoFLOXacin 750 MG TABLET PO SCH (10:30)
[2017-05-13 11:34] VITALS: BP 122/82
== END 2017-05-13 13:50 | disposition home or self-care (01) | DRG 871 ==
LOC: 2ANU 06:30 → EMEROO 06:30 → 2ANU 09:15 → SUATTDRO 18:55
PROVIDERS: ADMIT Internal Medicine; ATTEND Internal Medicine